=== PATIENT | male | born 2000 | race Two or more races ===

== ENCOUNTER 2022-12-20 12:52 | Emergency (ER) | payer SELFPAY ==
--- NOTE | ~2022-12-20 | CT_ITS ---
EXAMINATION: CT ABDOMEN AND PELVIS WITHOUT CONTRAST CLINICAL INFORMATION: Painless hematuria. COMPARISON: None. TECHNIQUE: Multidetector volumetric imaging was performed from the superior aspect of the liver through the pubic symphysis. Sagittal and coronal reformatted images were obtained on the technologist workstation. This CT examination was performed using dose optimization techniques as appropriate, variously including the following: *Automated exposure control *Adjustment of mA and/or kV according to patient size (this includes techniques or standardized protocols for targeted exams where dose is matched to indication/reason for exam; i.e. extremities or head) *Use of iterative reconstruction technique DLP: 401 mGy-cm. FINDINGS: LUNG BASES: The visualized lung bases are unremarkable. LIVER, GALLBLADDER, AND BILIARY TREE: The liver is normal in size, shape, and attenuation. No focal hepatic lesion on noncontrast imaging. No biliary ductal dilatation is present. The gallbladder is unremarkable with no evidence of radiopaque gallstones, gallbladder wall thickening, or obvious pericholecystic inflammatory changes. PANCREAS: Unremarkable on noncontrast imaging. SPLEEN: Unremarkable. ADRENAL GLANDS: Unremarkable on noncontrast imaging. KIDNEYS AND URETERS: The kidneys are normal in size, shape, and attenuation. No hydronephrosis, hydroureter, or calculi seen. No perinephric stranding. BLADDER: The bladder wall appears diffusely mildly thickened, possibly due to incompletely distended state. Superimposed subtle cystitis, however, cannot be excluded in the setting of painless hematuria. No bladder calculi, bladder wall calcifications or free air within the bladder is seen. No bladder wall mass on noncontrast study. PELVIC VISCERA: Unremarkable. GASTROINTESTINAL TRACT: The small and large bowel are unremarkable. The appendix is not seen, but no focal inflammatory process is seen in the right lower quadrant to suspect appendicitis.. ABDOMINAL WALL: No significant hernia is appreciated. LYMPH NODES, VASCULAR: Unremarkable. OSSEOUS STRUCTURES: Unremarkable. CT/CT abdomen pelvis wo IV con IMPRESSION: 1. No evidence of nephrolithiasis or obstructive uropathy. 2. Mild diffuse thickening of the bladder wall, possibly due to incompletely distended state. Superimposed subtle cystitis cannot be excluded in the setting of painless hematuria. Close clinical correlation and urologic follow-up as clinically appropriate.
[2022-12-20 13:12] VITALS: BP 125/68; PULSE 59; RESP 18; TEMP 36.6; O2SAT 98; BMI 19.5
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
[2022-12-20 14:33] LABS: MANUAL DIFF FLAG NO
[2022-12-20 14:37] LABS: Basophils Percent Auto 0.2 % (0-2); Eosinophils Absolute Auto 0.2 X10*3/uL (0.0-0.4); Eosinophils Percent Auto 3.7 % (0-4); Hemoglobin 14.8 g/dl (14.0-18.0); Imm Gran Abs Auto 0.01 X10*3/uL (0.00-0.03); Imm Gran Pct Auto 0.2 % (0.0-0.4); Lymphocytes Absolute Auto 2.4 X10*3/uL (1.2-4.9); Lymphocytes Percent Auto 46.9 % (20-40); Mean Corpuscular HGB Conc 32.9 g/dl (31.0-36.0); Mean Corpuscular Hemoglobin 31.3 pg (27.0-33.0); Mean Corpuscular Volume 95.1 fL (80.0-98.0); Monocytes Absolute Auto 0.4 X10*3/uL (0.1-1.2); Monocytes Percent Auto 7.3 % (2-11); Neutrophils Absolute Auto 2.2 x10*3/uL (2.0-8.3); Neutrophils Percent Auto 41.7 % (45-73); Platelet Count 157 X10*3/uL (160-400); Red Blood Count 4.73 X10*6/uL (4.60-5.80); Red Cell Distribution Width 12.1 % (11.0-16.0); White Blood Count 5.2 X10*3/uL (4.8-10.8)
[2022-12-20 14:37] LABS: Appearance Urine Clear; Color Urine Yellow; Glucose Urine UA Negative (Negative); Leukocyte Esterase Urine Negative (Negative); Nitrite Urine Negative (Negative); PH 5.5 (5.0-9.0); UMIC TRIGGER UACC YES; Urine Blood Large (3+) (Negative); Urine Ketones Negative (Negative); Urine Protein Negative (Neg-Trace)
[2022-12-20 14:40] LABS: Bacteria Urine None Seen (None Seen); Hyaline Casts Urine 0-2 /LPF (0-2); RBC Urine >20 /HPF (0-2); Squamous Epithelial Cell Urine 0-2 /HPF (0-2); WBC Urine 0-5 /HPF (0-5)
[2022-12-20 14:52] LABS: Alanine Aminotransferase 13 U/L (0-40); Albumin Level 4.7 g/dL (3.5-5.0); Alkaline Phosphatase 84 U/L (39-117); Anion Gap 14 (12-20); Aspartate Amino Transferase 21 U/L (5-37); Bilirubin Total 0.6 mg/dL (0.0-1.0); Blood Urea Nitrogen 13 mg/dL (9-16); Calcium 9.7 mg/dL (8.4-10.2); Carbon Dioxide 25 mmol/L (22-29); Chloride 108 mmol/L (96-108); Creatinine Clr Calc Pharmacy 131.8; Estimated Glomerular Filt Rate > 60; Glucose Random 82 mg/dL (60-115); Potassium 4.6 mmol/L (3.3-5.1); Sodium 142 mmol/L (135-145)
[2022-12-20 16:08] VITALS: BP 118/62; PULSE 50; RESP 16; TEMP 36.9; O2SAT 100
[2022-12-20 16:42] LABS: CT PCR NOT DETECTED (Not Detect.); NG PCR NOT DETECTED (Not Detect.)
== END 2022-12-20 17:34 | disposition home or self-care (01) ==
PROVIDERS: Physician Assistant; Physician Assistant Medical; Emergency Provider Emergency Medicine
DX: N39.0 Urinary tract infection, site not specified (principal); R31.9 Hematuria, unspecified; R10.9 Unspecified abdominal pain; Z79.899 Other long term (current) drug therapy
CPT/HCPCS: 0353U; 36415; 74176; 80053; 81001; 82550; 85025; 99283

== ENCOUNTER 2023-06-15 05:31 | Inpatient (IN) | payer OTHER, MEDICAID, SELFPAY ==
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
[2023-06-15 05:37] VITALS: BP 139/85; PULSE 90; RESP 17; TEMP 36.8; O2SAT 98
[2023-06-15 05:39] VITALS: BP 154/90; PULSE 105; O2SAT 99; BMI 21.0
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
[2023-06-15 06:41] LABS: MANUAL DIFF FLAG NO
[2023-06-15 06:43] LABS: Basophils Percent Auto 0.2 % (0-2); Eosinophils Absolute Auto 0.1 X10*3/uL (0.0-0.4); Eosinophils Percent Auto 0.8 % (0-4); Hematocrit 41.6 % (42.0-52.0); Imm Gran Abs Auto 0.06 X10*3/uL (0.00-0.03); Imm Gran Pct Auto 0.6 % (0.0-0.4); Lymphocytes Absolute Auto 1.5 X10*3/uL (1.2-4.9); Lymphocytes Percent Auto 14.9 % (20-40); Mean Corpuscular HGB Conc 33.7 g/dl (31.0-36.0); Mean Corpuscular Hemoglobin 31.2 pg (27.0-33.0); Mean Corpuscular Volume 92.7 fL (80.0-98.0); Mean Platelet Volume 11.1 fL (9.4-12.4); Monocytes Absolute Auto 0.6 X10*3/uL (0.1-1.2); Monocytes Percent Auto 6.3 % (2-11); Neutrophils Absolute Auto 7.8 x10*3/uL (2.0-8.3); Neutrophils Percent Auto 77.2 % (45-73); Platelet Count 163 X10*3/uL (160-400); Red Blood Count 4.49 X10*6/uL (4.60-5.80); Red Cell Distribution Width 12.5 % (11.0-16.0); White Blood Count 10.1 X10*3/uL (4.8-10.8)
[2023-06-15 06:49] LABS: COVID-19 Test Negative (Negative); IDNOW Serial# 9DB6401D
[2023-06-15] MEDS: Acetaminophen 325 MG TABLET 650 MG PO (06:49)
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
[2023-06-15 06:59] LABS: Alanine Aminotransferase 10 U/L (0-40); Albumin Level 4.5 g/dL (3.5-5.0); Alkaline Phosphatase 101 U/L (39-117); Anion Gap 13 (12-20); Aspartate Amino Transferase 18 U/L (5-37); Bilirubin Total 0.3 mg/dL (0.0-1.0); Blood Urea Nitrogen 13 mg/dL (9-16); Calcium 9.4 mg/dL (8.4-10.2); Carbon Dioxide 21 mmol/L (22-29); Chloride 111 mmol/L (96-108); Estimated Glomerular Filt Rate > 60; Ethanol < 10 mg/dL; Glucose Random 106 mg/dL (60-115); Potassium 3.2 mmol/L (3.3-5.1); Sodium 142 mmol/L (135-145); Total Protein 6.7 g/dL (6.5-8.0)
[2023-06-15 07:44] LABS: Appearance Urine Clear; Color Urine Yellow; Glucose Urine UA Negative (Negative); Leukocyte Esterase Urine Negative (Negative); Nitrite Urine Negative (Negative); Urine Blood Negative (Negative); Urine Ketones Negative (Negative); Urine Protein Trace mg/dL (Neg-Trace)
[2023-06-15 07:52] LABS: Amphetamine Screen Urine Not Detected (Not Detect); Barbiturates, Urine Not Detected (Not Detect); Benzodiazepines Screen Urine Not Detected (Not Detect); Cannabinoid Screen Urine POSITIVE (Not Detect); Cocaine Screen Urine Not Detected (Not Detect); Fentanyl, urine Not Detected (Not Detect); Opiate Screen Urine Not Detected (Not Detect); Phencyclidine Screen Urine Not Detected (Not Detect)
[2023-06-15] MEDS: Potassium Chloride Packet 20 MEQ PACKET 40 MEQ PO (08:03)
[2023-06-15 08:05] VITALS: BP 131/69; PULSE 66; RESP 18; TEMP 36.9; O2SAT 97
--- NOTE | 2023-06-15 08:06 | PC.NURSE ---
pt a&ox3. respirations even and unlabored. pt lung sounds clear bilaterally. pt abdomen soft non tender to touch, active bowel sounds in all 4 quadrants. pt reports mild right thumb pain with movement, no redness or swelling noted. pt denies SI/HI at this time and states :the sitter has been helping . pt has 1:1 sitter at bedside.
[2023-06-15] MEDS: LORazepam 1 MG TABLET PO (15:27)
--- NOTE | 2023-06-15 15:27 | PC.NURSE ---
pt medicated per MAR for increased anxiety.
--- NOTE | 2023-06-15 15:29 | PC.NURSE ---
report given to ED pod nurse.
[2023-06-15 16:58] VITALS: BP 116/56; PULSE 65; RESP 18; TEMP 37.1; O2SAT 98
[2023-06-15 20:13] VITALS: BP 109/56; PULSE 64; RESP 16; TEMP 36.6; O2SAT 99
[2023-06-15 22:15] VITALS: BP 138/71; PULSE 54; RESP 18; TEMP 36.4; O2SAT 98
[2023-06-15 22:58] VITALS: BMI 20.1
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
[2023-06-16] MEDS: traZODone HCL 50 MG TABLET PO ×3 (00:09→23:16)
[2023-06-16] MEDS: hydrOXYzine HCL 25 MG TABLET PO ×2 (00:09→21:25)
[2023-06-16 07:53] LABS: Estimated Average Glucose 91 mg/dL; Hemoglobin A1c % 4.8 % (<6.0)
[2023-06-16 08:08] LABS: Alanine Aminotransferase 10 U/L (0-40); Albumin Level 4.4 g/dL (3.5-5.0); Alkaline Phosphatase 83 U/L (39-117); Anion Gap 14 (12-20); Aspartate Amino Transferase 17 U/L (5-37); Bilirubin Total 0.9 mg/dL (0.0-1.0); Blood Urea Nitrogen 11 mg/dL (9-16); Calcium 9.6 mg/dL (8.4-10.2); Carbon Dioxide 24 mmol/L (22-29); Chloride 109 mmol/L (96-108); Cholesterol 154 mg/dL (<200); Creatinine Clr Calc Pharmacy 134.6; Estimated Glomerular Filt Rate > 60; Glucose Fasting 85 mg/dL (60-99); HDL Cholesterol 58 mg/dL (>40); LDL Cholesterol Calculated 82 mg/dL (<100); Magnesium 2.2 mg/dL (1.6-2.6); Potassium 3.6 mmol/L (3.3-5.1); Sodium 143 mmol/L (135-145); Total Protein 6.8 g/dL (6.5-8.0); Triglycerides 70 mg/dL (<150)
[2023-06-16 08:33] LABS: Folate 11.6 ng/mL (> or = 4.0); Vitamin B12 289 pg/mL (200-900)
[2023-06-16 09:00] VITALS: BP 125/72; PULSE 64; RESP 18; TEMP 36.3; O2SAT 98
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
--- NOTE | 2023-06-16 12:09 | MHC.CLN ---
NUTRITION CONSULT FOR 18# WEIGHT LOSS X ONE MONTH. REVIEW OF WEIGHT HX SHOWS NO SIGNIFICANT WEIGHT CHANGE X 6 MONTHS. 06/15/23=69.03 KG AND 72.3 KG (LIKELY WEIGHT ON UNIT VS ED) 12/20/22=[address] AVAILABLE BY CONSULT IF INTAKE APPEAR INADEQUATE.
[2023-06-16] MEDS: Acetaminophen 325 MG TABLET 650 MG PO (15:06)
[2023-06-16] MEDS: FLUoxetine HCl 20 MG CAPSULE PO (15:06)
[2023-06-16] MEDS: Prazosin HCL 1 MG CAPSULE PO (21:26)
[2023-06-16 21:36] VITALS: BP 126/63; PULSE 60; TEMP 36.2; O2SAT 98
[2023-06-17 07:00] VITALS: BMI 20.2
[2023-06-17] MEDS: FLUoxetine HCl 20 MG CAPSULE PO (09:29)
[2023-06-17] MEDS: Acetaminophen 325 MG TABLET 650 MG PO (09:33)
[2023-06-17] MEDS: Milk of Magnesia 30 ML ORAL.SUSP PO (09:34)
[2023-06-17 10:17] VITALS: BP 105/52; PULSE 56; RESP 16; TEMP 36.9; O2SAT 96
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
[2023-06-17] MEDS: hydrOXYzine HCL 25 MG TABLET PO (19:29)
[2023-06-17 21:50] VITALS: BP 116/71; PULSE 64; RESP 18; TEMP 36.9; O2SAT 98
[2023-06-17] MEDS: Prazosin HCL 1 MG CAPSULE 2 MG PO (22:00)
[2023-06-17] MEDS: traZODone HCL 50 MG TABLET PO (22:01)
[2023-06-18 08:34] VITALS: BP 127/70; PULSE 74; RESP 17; TEMP 36.4; O2SAT 98
[2023-06-18] MEDS: FLUoxetine HCl 20 MG CAPSULE PO (08:37)
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
[2023-06-18] MEDS: Docusate Sodium 100 MG CAPSULE PO ×2 (14:06→22:34)
[2023-06-18] MEDS: Acetaminophen 325 MG TABLET 650 MG PO (16:33)
[2023-06-18] MEDS: hydrOXYzine HCL 25 MG TABLET PO (16:58)
[2023-06-18 19:45] VITALS: BP 134/74; PULSE 67; RESP 16; TEMP 37.1; O2SAT 98
[2023-06-18] MEDS: Prazosin HCL 1 MG CAPSULE 2 MG PO (22:32)
[2023-06-18] MEDS: traZODone HCL 50 MG TABLET PO (22:33)
[2023-06-19] MEDS: traZODone HCL 25 MG HALFTAB PO ×2 (00:31→22:39)
[2023-06-19 08:45] VITALS: BP 125/65; PULSE 56; RESP 18; TEMP 36.8; O2SAT 98
[2023-06-19] MEDS: FLUoxetine HCl 20 MG CAPSULE PO (08:55)
[2023-06-19] MEDS: Docusate Sodium 100 MG CAPSULE PO ×2 (08:55→21:23)
[2023-06-19] MEDS: Acetaminophen 325 MG TABLET 650 MG PO (09:36)
--- NOTE | 2023-06-19 10:28 | HO.PSYCHPN ---
Subjective Subjective Date of Service: 06/19/23 Reason For Visit: si Subjective Notes: Conditional Voluntary Interim History: The nursing staff reported that the patient has been compliant with treatment, he reported to the staff, that he is feeling better. He had an anxiety attack yesterday but he was able to cope with it. Last night he took Trazodone and slept around 4 hours.. On interview, he admitted some PTSD symptoms such as flashbacks but overall much better. Mental Status Exam Mental Status Exam Patient Appearance: Appropriate (on hospital gowns) Patient Orientation: Person and Situation Level of Consciousness: Awake and Appropriate Patient Behavior: Cooperative and Passive Mood Description: Calm Affect Description: Constricted and Anxious Patient Cognition Impaired: No Ability to Follow Directions: Good Speech Pattern: Clear Hallucinations: None Delusions: Not Present Thought Process: Linear Thought Content: positive for Circumstantial Judgement: Fair Diagnostics Vital Signs (24Hr): Vital Signs - 24 hr 06/18/23 19:45 06/19/23 08:45 Temperature 98.8 F 98.2 F Pulse Rate 67 56 Respiratory Rate 16 18 Blood Pressure 134/74 125/65 Pulse Oximetry 98 98 Oxygen Delivery Method Room Air Room Air BMI result Body Mass Index 20.2 Labs 06/15/23 06:29 06/16/23 06:49 Imaging Radiology Impressions: ITS Impressions Hand X-Ray 06/15/23 06:05 IMPRESSION: No acute findings identified. Head CT 06/16/23 15:17 IMPRESSION: No acute intracranial pathology. Medications Medications Current Medications Acetaminophen (Acetaminophen 325 Mg Tablet) 650 mg PO Q6H PRN PRN Reason: Headache/Pain Mild Scale (1-3) Last Admin: 06/19/23 09:36 Dose: 650 mg Al Hydroxide/Mg Hydroxide (Magnesium Hydrox/Alum Hydrox 30 Ml Oral.Susp) 30 ml PO Q6H PRN PRN Reason: Heartburn/Nausea Docusate Sodium (Docusate Sodium 100 Mg Capsule) 100 mg PO BID [facility] [place] Last Admin: 06/19/23 08:55 Dose: 100 mg Fluoxetine HCl (Fluoxetine Hcl 20 Mg Capsule) 20 mg PO DAILY [facility] [place] Last Admin: 06/19/23 08:55 Dose: 20 mg Hydroxyzine HCl (Hydroxyzine Hcl 25 Mg Tablet) 25 mg PO Q6H PRN PRN Reason: anxiety Last Admin: 06/18/23 16:58 Dose: 25 mg Magnesium Hydroxide (Milk Of Magnesia 30 Ml Oral.Susp) 30 ml PO DAILY PRN PRN Reason: Constipation Last Admin: 06/17/23 09:34 Dose: 30 ml Prazosin HCl (Prazosin Hcl 1 Mg Capsule) 2 mg PO BEDTIME [facility]; Protocol Last Admin: 06/18/23 22:32 Dose: 2 mg Trazodone HCl (Trazodone Hcl 50 Mg Tablet) 50 mg PO BEDTIME [facility] Last Admin: 06/18/23 22:33 Dose: 50 mg Trazodone HCl (Trazodone Hcl 25 Mg Halftab) 25 mg PO BEDTIME PRN PRN Reason: insomnia Last Admin: 06/19/23 00:31 Dose: 25 mg Allergies Allergies Allergy/AdvReac Type Severity Reaction Status Date / Time No Known Allergies Allergy Verified 12/20/22 13:11 Assessment & Plan Assessment & Plan (1) TBI (traumatic brain injury): Qualifiers: Encounter type: sequela Loss of consciousness presence/duration: with LOC > 24 hr with return to prior conscious level Qualified Code(s): S06.9X5S - Unspecified intracranial injury with loss of consciousness greater than 24 hours with return to pre-existing conscious level, sequela Status: Acute Code(s): S06.9XAA - Unspecified intracranial injury with loss of consciousness status unknown, initial encounter (2) Chronic post-traumatic stress disorder (PTSD): Status: Acute Code(s): F43.12 - Post-traumatic stress disorder, chronic (3) Major depressive disorder: Qualifiers: Active/Remission status: currently active Major depression episode severity: moderate Major depression recurrence: unspecified whether recurrent Qualified Code(s): F32.1 - Major depressive disorder, single episode, moderate Status: Acute Code(s): F32.9 - Major depressive disorder, single episode, unspecified (4) Cannabis use disorder: Status: Acute Code(s): F12.90 - Cannabis use, unspecified, uncomplicated Plan 06/16: head CT. start prozac 20 mg daily. start prazosin 1 mg QHS. 06/17: head CT WNL. continue prozac 20. increase prazosin to 2 mg QHS. working with ANISA on obtaining his documents and organizing dispo plan. 06/18: DC PRN hydroxyzine so pt does not receive it at HS. continue prazosin 2 and trazodone 50. develop dispo plan. improved affect today. 06/19: keep same treatment. Reason for continued inpatient stay Substantial Risk for: inability to function, rapid decompensation and med/psych decompensation Time Spent With Patient Time: Total time managing care of this patient today __20__ minutes.
[2023-06-19] MEDS: hydrOXYzine HCL 25 MG TABLET PO (11:06)
[2023-06-19 20:07] VITALS: BP 159/67; PULSE 61; RESP 16; TEMP 36.6; O2SAT 98
[2023-06-19] MEDS: Prazosin HCL 1 MG CAPSULE 2 MG PO (21:24)
[2023-06-19] MEDS: traZODone HCL 50 MG TABLET PO (21:25)
[2023-06-20 09:10] VITALS: BP 143/79; PULSE 75; RESP 18; TEMP 36.4; O2SAT 96
[2023-06-20] MEDS: FLUoxetine HCl 20 MG CAPSULE PO (09:12)
[2023-06-20] MEDS: Docusate Sodium 100 MG CAPSULE PO ×2 (09:12→21:27)
--- NOTE | 2023-06-20 11:15 | HO.PSYCHPN ---
Subjective Subjective Date of Service: 06/20/23 Reason For Visit: si Subjective Notes: Conditional Voluntary Interim History: The nursing staff reported the patient had been visible in the unit, cooperative pleasant he reported some anxiety and last night he have nightmares. Use reported poor sleep with broken pattern. On interview the patient denies exacerbation of depression but he is interested on increasing the medication for nightmares. No side effects noticed. Mental Status Exam Mental Status Exam Patient Appearance: Well Grooomed and Appropriate Patient Orientation: Person, Place and Situation Level of Consciousness: Awake and Appropriate Patient Behavior: Cooperative and Passive Mood Description: Calm Affect Description: Constricted Patient Cognition Impaired: No Ability to Follow Directions: Excellent Speech Pattern: Clear Memory Description: Intact Hallucinations: None Delusions: Not Present Thought Process: Goal Oriented and Linear Thought Content: positive for Circumstantial Judgement: Fair Diagnostics Vital Signs (24Hr): Vital Signs - 24 hr 06/19/23 20:07 06/20/23 09:10 Temperature 97.8 F 97.6 F Pulse Rate 61 75 Respiratory Rate 16 18 Blood Pressure 159/67 H 143/79 H Pulse Oximetry 98 96 Oxygen Delivery Method Room Air Room Air BMI result Body Mass Index 20.2 Labs 06/15/23 06:29 06/16/23 06:49 Imaging Radiology Impressions: ITS Impressions Hand X-Ray 06/15/23 06:05 IMPRESSION: No acute findings identified. Head CT 06/16/23 15:17 IMPRESSION: No acute intracranial pathology. Medications Medications Current Medications Acetaminophen (Acetaminophen 325 Mg Tablet) 650 mg PO Q6H PRN PRN Reason: Headache/Pain Mild Scale (1-3) Last Admin: 06/19/23 09:36 Dose: 650 mg Al Hydroxide/Mg Hydroxide (Magnesium Hydrox/Alum Hydrox 30 Ml Oral.Susp) 30 ml PO Q6H PRN PRN Reason: Heartburn/Nausea Docusate Sodium (Docusate Sodium 100 Mg Capsule) 100 mg PO BID [facility] Last Admin: 06/20/23 09:12 Dose: 100 mg Fluoxetine HCl (Fluoxetine Hcl 20 Mg Capsule) 20 mg PO DAILY [facility] Last Admin: 06/20/23 09:12 Dose: 20 mg Hydroxyzine HCl (Hydroxyzine Hcl 25 Mg Tablet) 25 mg PO Q6H PRN PRN Reason: anxiety Last Admin: 06/19/23 11:06 Dose: 25 mg Magnesium Hydroxide (Milk Of Magnesia 30 Ml Oral.Susp) 30 ml PO DAILY PRN PRN Reason: Constipation Last Admin: 06/17/23 09:34 Dose: 30 ml Prazosin HCl (Prazosin Hcl 1 Mg Capsule) 2 mg PO BEDTIME [facility]; Protocol Last Admin: 06/19/23 21:24 Dose: 2 mg Trazodone HCl (Trazodone Hcl 50 Mg Tablet) 50 mg PO BEDTIME [facility] Last Admin: 06/19/23 21:25 Dose: 50 mg Trazodone HCl (Trazodone Hcl 25 Mg Halftab) 25 mg PO BEDTIME PRN PRN Reason: insomnia Last Admin: 06/19/23 22:39 Dose: 25 mg Allergies Allergies Allergy/AdvReac Type Severity Reaction Status Date / Time No Known Allergies Allergy Verified 12/20/22 13:11 Assessment & Plan Assessment & Plan (1) TBI (traumatic brain injury): Qualifiers: Encounter type: sequela Loss of consciousness presence/duration: with LOC > 24 hr with return to prior conscious level Qualified Code(s): S06.9X5S - Unspecified intracranial injury with loss of consciousness greater than 24 hours with return to pre-existing conscious level, sequela Status: Acute Code(s): S06.9XAA - Unspecified intracranial injury with loss of consciousness status unknown, initial encounter (2) Chronic post-traumatic stress disorder (PTSD): Status: Acute Code(s): F43.12 - Post-traumatic stress disorder, chronic (3) Major depressive disorder: Qualifiers: Major depression recurrence: unspecified whether recurrent Active/Remission status: currently active Major depression episode severity: moderate Qualified Code(s): F32.1 - Major depressive disorder, single episode, moderate Status: Acute Code(s): F32.9 - Major depressive disorder, single episode, unspecified (4) Cannabis use disorder: Status: Acute Code(s): F12.90 - Cannabis use, unspecified, uncomplicated Plan 06/16: head CT. start prozac 20 mg daily. start prazosin 1 mg QHS. 06/17: head CT WNL. continue prozac 20. increase prazosin to 2 mg QHS. working with ANISA on obtaining his documents and organizing dispo plan. 06/18: DC PRN hydroxyzine so pt does not receive it at HS. continue prazosin 2 and trazodone 50. develop dispo plan. improved affect today. 06/19: keep same treatment. 06/20 increase prazosin up to 4 mg p.o. q.h.s. to target I hers. Rest the same. Reason for continued inpatient stay Substantial Risk for: inability to function, rapid decompensation and med/psych decompensation Time Spent With Patient Time: Total time managing care of this patient today _20___ minutes.
[2023-06-20] MEDS: traZODone HCL 50 MG TABLET PO (21:27)
[2023-06-20] MEDS: Prazosin HCL 1 MG CAPSULE 4 MG PO (21:28)
[2023-06-20 21:41] VITALS: BP 134/64; PULSE 67; RESP 16; TEMP 36.3; O2SAT 99
[2023-06-20] MEDS: traZODone HCL 25 MG HALFTAB PO (23:07)
[2023-06-21] MEDS: hydrOXYzine HCL 25 MG TABLET PO ×2 (00:50→15:05)
[2023-06-21] MEDS: traZODone HCL 25 MG HALFTAB PO (00:51)
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
[2023-06-21 08:00] VITALS: BP 112/55; PULSE 62; RESP 16; TEMP 36; O2SAT 98
[2023-06-21] MEDS: FLUoxetine HCl 20 MG CAPSULE PO (09:04)
[2023-06-21] MEDS: Docusate Sodium 100 MG CAPSULE PO ×2 (09:04→22:58)
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
[2023-06-21 20:48] VITALS: BP 129/65; PULSE 73; RESP 16; TEMP 36.8; O2SAT 99
[2023-06-21] MEDS: traZODone HCL 50 MG TABLET PO (22:58)
[2023-06-21] MEDS: Prazosin HCL 1 MG CAPSULE 4 MG PO (22:58)
[2023-06-22] MEDS: FLUoxetine HCl 20 MG CAPSULE PO (08:27)
[2023-06-22] MEDS: Docusate Sodium 100 MG CAPSULE PO ×2 (08:27→22:39)
[2023-06-22 08:28] VITALS: BP 107/66; PULSE 58; RESP 16; TEMP 36.7; O2SAT 98
[2023-06-22] MEDS: hydrOXYzine HCL 25 MG TABLET PO ×2 (10:57→19:17)
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
[2023-06-22 20:33] VITALS: BP 127/62; PULSE 77; RESP 18; TEMP 36.1; O2SAT 99
[2023-06-22 22:36] VITALS: BP 138/78; PULSE 65; RESP 16
[2023-06-22] MEDS: traZODone HCL 25 MG HALFTAB 75 MG PO (22:38)
[2023-06-22] MEDS: Prazosin HCL 5 MG CAPSULE PO (22:38)
[2023-06-23] MEDS: FLUoxetine HCl 20 MG CAPSULE PO (09:04)
[2023-06-23] MEDS: Docusate Sodium 100 MG CAPSULE PO ×2 (09:04→22:37)
[2023-06-23 09:12] VITALS: BP 129/55; PULSE 72; RESP 17; TEMP 36.7; O2SAT 96
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
[2023-06-23 20:33] VITALS: BP 135/70; PULSE 69; TEMP 36.6; O2SAT 99
[2023-06-23 22:32] VITALS: BP 122/76; PULSE 75; RESP 16
[2023-06-23] MEDS: traZODone HCL 25 MG HALFTAB 75 MG PO (22:37)
[2023-06-23] MEDS: Prazosin HCL 1 MG CAPSULE 6 MG PO (22:37)
--- NOTE | 2023-06-24 | ECG_ITS ---
Test Reason : pt fall Blood Pressure : / mmHG Vent. Rate : 055 BPM Atrial Rate : 055 BPM P-R Int : 142 ms QRS Dur : 114 ms QT Int : 454 ms P-R-T Axes : 059 084 072 degrees QTc Int : 434 ms Sinus bradycardia with occasional Premature atrial complexes Otherwise normal ECG No previous ECGs available Referred By: Marjorie Alvarenga Electronically Signed By:HERON KLEIN
[2023-06-24] MEDS: Acetaminophen 325 MG TABLET 650 MG PO ×3 (04:56→22:05)
[2023-06-24 05:05] LABS: Glucose, Whole Blood 115 mg/dL (60-115)
[2023-06-24 05:50] VITALS: BP 126/60; PULSE 60; RESP 16; TEMP 36.6; O2SAT 98
--- NOTE | 2023-06-24 06:30 | PM.EVENT ---
Event Note Date of Service: 06/24/23 Event Note: I was asked to see this patient for evaluation of fall. Patient woke up, was walking back to his bed when he reports that he fainted and fell to the floor hitting his head. He got a head CT. Pending results. On my interview patient is sleeping but arousable, he wakes up and answers questions appropriately. He states that he has at headache but otherwise denies having any palpitations no chest pain. Reports that he was feeling dizzy prior to having the fainting episode. Patient's prazosin was increased overnight which may be contributing. Will obtain an EKG. Denies any family history of any heart disease. This was likely vasovagal and does not require any further investigation to size EKG. Time Spent With Patient Time: Total time managing care of this patient today ____ minutes.
[2023-06-24 07:00] VITALS: BMI 20.5
[2023-06-24 08:30] VITALS: BP 95/57; PULSE 98; RESP 18; TEMP 36.3; O2SAT 97
[2023-06-24] MEDS: FLUoxetine HCl 20 MG CAPSULE PO (08:46)
[2023-06-24] MEDS: Docusate Sodium 100 MG CAPSULE PO ×2 (08:46→22:06)
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
[2023-06-24 22:00] VITALS: BP 136/75; PULSE 63; RESP 18; TEMP 37.1; O2SAT 99
[2023-06-24] MEDS: Prazosin HCL 5 MG CAPSULE PO (22:05)
[2023-06-24] MEDS: traZODone HCL 25 MG HALFTAB 75 MG PO (22:06)
[2023-06-24] MEDS: hydrOXYzine HCL 25 MG TABLET PO (22:21)
--- NOTE | 2023-06-25 02:06 | PC.NURSE ---
Addendum entered by Adriana James RN 06/25/23 04:21: 0400 neuro check not done as pt is asleep, breathing unlabored and regular Original Note: Pt Neuro checks not done at midnight as pt was sleeping peacefully and breathing was easy and regular, unlabored.
[2023-06-25] MEDS: Docusate Sodium 100 MG CAPSULE PO ×2 (08:36→22:51)
[2023-06-25] MEDS: FLUoxetine HCl 20 MG CAPSULE PO (08:36)
[2023-06-25 09:10] VITALS: BP 106/59; PULSE 59; RESP 18; TEMP 36.9; O2SAT 98
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
[2023-06-25] MEDS: Acetaminophen 325 MG TABLET 650 MG PO (18:49)
[2023-06-25 22:40] VITALS: BP 144/81; PULSE 74; RESP 18; O2SAT 95
[2023-06-25] MEDS: traZODone HCL 25 MG HALFTAB 75 MG PO (22:51)
[2023-06-25] MEDS: Prazosin HCL 5 MG CAPSULE PO (22:51)
[2023-06-26] MEDS: Docusate Sodium 100 MG CAPSULE PO ×2 (09:41→22:21)
[2023-06-26] MEDS: FLUoxetine HCl 20 MG CAPSULE 40 MG PO (09:41)
[2023-06-26] MEDS: Acetaminophen 325 MG TABLET 650 MG PO (09:46)
[2023-06-26 10:45] VITALS: BP 107/57; PULSE 66; TEMP 36.1; O2SAT 97
[2023-06-26 22:20] VITALS: BP 119/66; PULSE 64; RESP 16; TEMP 37; O2SAT 99
[2023-06-26] MEDS: Prazosin HCL 5 MG CAPSULE PO (22:21)
[2023-06-26] MEDS: traZODone HCL 25 MG HALFTAB 75 MG PO (22:21)
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
[2023-06-27 09:45] VITALS: BP 119/68; PULSE 68; RESP 16; TEMP 36.1; O2SAT 97
[2023-06-27] MEDS: FLUoxetine HCl 20 MG CAPSULE 40 MG PO (09:49)
[2023-06-27] MEDS: Docusate Sodium 100 MG CAPSULE PO ×2 (09:49→23:14)
[2023-06-27] MEDS: Acetaminophen 325 MG TABLET 650 MG PO (13:33)
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
[2023-06-27 20:41] VITALS: BP 129/65; PULSE 62; RESP 18; TEMP 36.2; O2SAT 99
[2023-06-27] MEDS: hydrOXYzine HCL 25 MG TABLET PO (21:02)
[2023-06-27] MEDS: traZODone HCL 25 MG HALFTAB 75 MG PO (23:13)
[2023-06-27] MEDS: Prazosin HCL 1 MG CAPSULE 4 MG PO (23:15)
[2023-06-28] MEDS: Docusate Sodium 100 MG CAPSULE PO (09:40)
[2023-06-28] MEDS: FLUoxetine HCl 20 MG CAPSULE 40 MG PO (09:40)
[2023-06-28 09:43] VITALS: BP 106/59; PULSE 54; RESP 18; TEMP 36.8; O2SAT 98
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
[2023-06-28] MEDS: hydrOXYzine HCL 25 MG TABLET PO (12:59)
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
== END 2023-06-28 13:50 | DRG 751 ==
LOC: HO.ED 15:43 → HO.PADLT16 21:23
PROVIDERS: Social Worker; Student in an Organized Health Care Education/Training Program; Admitting Provider Psychiatry & Neurology Psychiatry; Emergency Provider Emergency Medicine; Visit Provider Psychiatry & Neurology Psychiatry
DX: F32.1 Major depressive disorder, single episode, moderate (principal); R45.851 Suicidal ideations; E87.6 Hypokalemia; F43.12 Post-traumatic stress disorder, chronic; F12.90 Cannabis use, unspecified, uncomplicated; Z20.822 Contact with and (suspected) exposure to COVID-19; Z23 Encounter for immunization; Z87.820 Personal history of traumatic brain injury; Z87.891 Personal history of nicotine dependence; Z79.899 Other long term (current) drug therapy
CPT/HCPCS: 36415; 70450; 73130; 80053; 80061; 80307; 81003; 82607; 82746; 82947; 83036; 83735; 84443; 85025; 87635; 90686; 93005; 99285; S9485

== ENCOUNTER → 2023-06-15 21:15 | Outpatient (BNV) | payer SELFPAY | PROVIDERS: Admitting Provider Psychiatry & Neurology Psychiatry; Emergency Provider Emergency Medicine; Visit Provider Psychiatry & Neurology Psychiatry | DX: F43.12 Post-traumatic stress disorder, chronic (principal); F32.1 Major depressive disorder, single episode, moderate; S06.9X5S Unspecified intracranial injury with loss of consciousness greater than 24 hours with return to pre-existing conscious level, sequela; F12.90 Cannabis use, unspecified, uncomplicated | CPT/HCPCS: 99231; 99232; 99233 ==